=== PATIENT | female | born 1950 | race Caucasian/White ===

== ENCOUNTER 2017-03-27 12:51 | Inpatient (IN) ==
--- NOTE | 2017-03-26 21:15 | Discharge Summary ---
<Luna Jennings E - Last Filed: 03/26/17 21:13> Date of Encounter: 03/26/17 - Discharge Diagnosis (1) Fracture of surgical neck of right humerus Priority: Primary Status: Acute Qualifiers: Encounter type: initial encounter Fracture type: closed Fracture morphology: unspecified fracture morphology Fracture alignment: displaced Qualified Code(s): S42.211A - Unspecified displaced fracture of surgical neck of right humerus, initial encounter for closed fracture (2) Hypertension Priority: Secondary Status: Chronic Qualifiers: Hypertension type: unspecified Qualified Code(s): I10 - Essential (primary ) hypertension - Discharge Medications Home Medications: Amitriptyline [Elavil] 20 mg PO HS 03/11/17 [History] Aspirin [Lo-Dose Aspirin EC] 81 mg PO DAILY 03/11/17 [History] Ergocalciferol (VITAMIN D2) [Vitamin D2] 2,000 unit PO DAILY 03/11/17 [History] Furosemide [Lasix] 20 mg PO DAILY 03/11/17 [History] Lisinopril [Zestril] 40 mg PO DAILY 03/11/17 [History] Metformin HCl [Glucophage] 1,000 mg PO BID 03/11/17 [History] Ranitidine HCl [Zantac] 150 mg PO BID 03/11/17 [History] Sertraline [Zoloft] 100 mg PO DAILY 03/11/17 [History] Tizanidine HCl [Zanaflex] 2 mg PO TID PRN 03/11/17 [History] Tramadol HCl [Ultram] 50 mg PO Q8H 03/11/17 [History] Metoprolol Succinate 200 mg PO DAILY 30 Days tab.er.24h 03/21/17 [Rx] Amlodipine Besylate 10 mg PO DAILY 03/22/17 [History] Atorvastatin [Lipitor] 10 mg PO HS 03/22/17 [History] HYDROcodone/Acet 7.5/325 mg [[place] 7.5-325 mg] 1 tab PO Q4H PRN #42 tablet 03/22 [Rx] Pioglitazone HCl 30 mg PO DAILY 03/27/17 [History] hydrOXYzine HCl [Hydroxyzine HCl] 25 mg PO TID 03/27/17 [History] Allergies/Adverse Reactions: 3 Allergy/AdvReac Type Severity Reaction Status Date / Time duloxetine [From Cymbalta] Allergy Agitated Verified 03/27/17 13:37 Paroxetine [From Paxil] Allergy Agitated Verified 03/27/17 13:37 acetaminophen [From Percocet] AdvReac Shakiness Verified 03/27/17 13:37 Oxycodone [From Percocet] AdvReac Shakiness Verified 03/27/17 13:37 Primary care physician: Jamar Gibson DO - Patient Status Disposition: Transfer Inpatient Rehab Fac Condition: Good - Discharge Instructions Follow Up With: Jamar Gibson DO [Primary Care Provider] - - Hospital Course Hospital course: Ms. Morfin is a 66 year old female - Time Spent with Patient Total time spent providing and/or coordinating discharge services: <Slim Garcia - Last Filed: 03/28/17 09:19> Date of Encounter: 03/28/17 Time of Encounter: 09:18 - Discharge Diagnosis (1) Obesity (BMI 35.0-39.9 without comorbidity) Priority: Secondary Status: Chronic (2) Status post reverse total shoulder replacement Priority: Primary Status: Acute Qualifiers: Laterality: right Qualified Code(s): Z96.611 - Presence of right artificial shoulder joint (3) Fracture of surgical neck of right humerus Priority: Primary Status: Acute Qualifiers: Encounter type: initial encounter Fracture type: closed Fracture morphology: unspecified fracture morphology Fracture alignment: displaced Qualified Code(s): S42.211A - Unspecified displaced fracture of surgical neck of right humerus, initial encounter for closed fracture (4) Hypertension Priority: Secondary Status: Chronic Qualifiers: Hypertension type: essential hypertension Qualified Code(s): I10 - Essential (primary) hypertension (5) Hyperlipidemia Priority: Secondary Status: Chronic Qualifiers: Hyperlipidemia type: unspecified Qualified Code(s): E78.5 - Hyperlipidemia , unspecified Labs on day of discharge: Labs from last 24 hours 03/27/17 13:05 POC Glucose 136 H Primary care physician: Jamar Gibson DO - Patient Status Functional capacity at discharge: uses cane/walker Overall status at discharge: patient is progressing back to baseline - Hospital Course Hospital course: Ms. Morfin is a 66 year old female Status post right total shoulder The patient had an uneventful postoperative course. They received antibiotics and physical therapy and were discharged in stable condition. There will follow -up in the office in 2 weeks. - Time Spent with Patient Total time spent providing and/or coordinating discharge services:
[2017-03-27] MEDS ORDERED: Ringers Solution, Lactated 1,000 ML IVC SCH ×2 (13:45→23:29)
--- NOTE | 2017-03-27 13:58 | History & Physical Report ---
Date of Encounter: 03/27/17 Time of Encounter: 13:58 24 Hour HP Update - Instructions Instructions: If the History and Physical is less than 30 days old and was completed prior to A.M. admission and or procedure and has NOT been updated on calendar day of procedure please complete this update prior to performing procedure. - Update Patient reports changes in Medical Condition: No Changes in examination, assessment, or condition: No Changes in Medication: No Preop tests/diagnostics Reviewed: Yes Surgery Remains Indicated: Yes Consent for Planned Operative Procedure(s) Verified: Yes - Pre-Operative Checklist Preoperative Checklist Indicated: No Prophylactic Antibiotic Ordered: Yes Is VTE Prophylaxis Indicated?: Yes
[2017-03-27] MEDS ORDERED: CeFAZolin Syr 2,000MG/20 ML 2,000 MG/20 ML SYRINGE IVPB ONE (14:07)
[2017-03-27] MEDS ORDERED: *HR* HYDROcodone/Acet 5/325 mg TABLET PO ONE ×3 (15:02→19:40)
--- NOTE | 2017-03-27 16:30 | History & Physical Report ---
Date of Encounter: 03/27/17 Time of Encounter: 16:29 24 Hour HP Update - Instructions Instructions: If the History and Physical is less than 30 days old and was completed prior to A.M. admission and or procedure and has NOT been updated on calendar day of procedure please complete this update prior to performing procedure. - Update Patient reports changes in Medical Condition: No Changes in examination, assessment, or condition: No Changes in Medication: No Preop tests/diagnostics Reviewed: Yes Surgery Remains Indicated: Yes Consent for Planned Operative Procedure(s) Verified: Yes - Pre-Operative Checklist Preoperative Checklist Indicated: No Prophylactic Antibiotic Ordered: Yes Is VTE Prophylaxis Indicated?: Yes
[2017-03-27] MEDS ORDERED: Lidocaine -MPF 2% 2 ML VIAL ONE ×2 (16:42→20:36)
[2017-03-27] MEDS ORDERED: *HR* Propofol 200 MG/20 ML VIAL IVP ONE ×2 (16:42→20:37)
[2017-03-27] MEDS ORDERED: *HR* Midazolam HCl 2 MG/2 ML VIAL ONE ×2 (16:42→20:36)
[2017-03-27] MEDS ORDERED: Ondansetron 4 MG/2 ML VIAL ONE ×2 (16:42→20:36)
[2017-03-27] MEDS ORDERED: *HR* FentaNYL (PF) 100 MCG/2 ML VIAL ONE ×2 (16:42→20:36)
[2017-03-27] MEDS ORDERED: *HR* Enoxaparin 30 MG/0.3 ML SYRINGE SQ SCH (18:00)
[2017-03-27] MEDS ORDERED: ROPIVACAINE HCL/PF 0.5% 30 ML VIAL ONE (20:32)
[2017-03-27] MEDS ORDERED: Dexamethasone 4 MG/ML VIAL ONE ×2 (20:33→20:36)
[2017-03-27] MEDS ORDERED: *HR* Succinylcholine 200 MG/10 ML VIAL IVP ONE (20:36)
[2017-03-27] MEDS ORDERED: Lidocaine -MPF 4% 5 ML AMPUL ONE (20:41)
--- NOTE | 2017-03-27 21:14 | Anesthesia Procedures ---
Date of Encounter: 03/27/17 Time of Encounter: 21:12 Procedures: Anesthesia - Nerve Block Procedure Date: 03/27/17 Time: 21:00 Allergies/Adv Reactions: duloxetine, paroxetine, acetaminophen, oxycodone Pre-op Diagnosis: R proximal humerus fracture Surgical Procedure: R TSR Checklist: Correct Patient Identifier, Correct procedure, History checked Correct side: Right Blood Thinner: No Monitor Applied: EKG, BP, Pulse Oximetry Supplemental Oxygen via Nasal Cannula (L/min): 3 Sedation: Versed (mg): 2 Sedation: Fentanyl (mcg): 50 Indication: Post Op Analgesia (requested by Dr. Garcia) Pre-op Neuro Deficits: No Block Type: Supraclavicular Catheter placed: No Sterile Technique: Yes Ultrasound used: Yes Anatomy identified: Yes Visual spread of Local: Yes Neuro Stimulation: No Blood on Needle Aspiration: No Smooth Injection of Local: Yes Pain with Injection of Local: No Prep: Chlorhexadine Needle: 22 x 50 mm Stimuplex Local: Ropivacaine (0.5% 30mL + 4mg dexamethasone) Number of Attempts: 1 Complications: None/effective block Vitals: please see Jamar MARTINEZ's electronic charting for VS entry
[2017-03-27] MEDS ORDERED: *HR* HYDROmorphone (PF) 1 MG/ML SYRINGE IVP PRN ×2 (21:16→23:29)
[2017-03-27] MEDS ORDERED: *HR* Labetalol 20 MG/4 ML SYRINGE IVP PRN (21:16)
[2017-03-27] MEDS ORDERED: Ipratropium Neb 0.5 MG NEBULIZER IH PRN (21:16)
[2017-03-27] MEDS ORDERED: Ondansetron 4 MG/2 ML VIAL IVP PRN ×2 (21:16→23:29)
[2017-03-27] MEDS ORDERED: Albuterol 2.5 MG/3 ML NEBULIZER IH PRN (21:16)
--- NOTE | 2017-03-27 21:42 | Orthopedic Operative Note ---
Date of procedure: 03/27/17 Pre-op diagnosis: Displaced comminuted right proximal humerus fracture Post-op diagnosis: same Procedure: Procedure: Reverse total shoulder replacment, right Estimated blood loss: 100 cc Hardware: Metal and polyethylene replacement Arthrex glenoid baseplate: Medium , 2 4.5 screws. 1 6.5 screw, glenosphere: 42+4 , humeral stem: 9 , poly insert: 6 constrained Procedural Notes: Comminuted displaced proximal humerus fracture. Operative procedure: The patient was brought to the operating room and placed on the operating room table. After general anesthesia was administered the operative shoulder was examined. Findings were noted. The patient was placed in the modified beachchair position. All pressure points were padded appropriately. And the head was stabilized in the neutral position. The operative extremity was prepped and draped in the sterile surgical fashion. The patient received IV antibiotics prior to skin incision. A standard deltopectoral approach was made to the operative shoulder. Incision was made to the skin and subcutaneous tissue,hemo stasis was obtained with Bovie cautery. Using careful blunt dissection the cephalic vein was identified and mobilized medially. The deltopectoral interval was developed and the clavipectoral fascia was incised. The lesser tuberosity was identified and tagged with 2 #2 fiber loops and 2 #2 FiberWire suture. The greater tuberosity was identified and tagged with 6 #5 FiberWire suture. The humeral head was removed. Anterior and posterior Bankart retractors were placed to expose the glenoid. The glenoid guide was seated and the centering hole was made. It was reamed with the appropriate reamer. The medium baseplate was seated and secured with ( 2) 4.5 screws and one 6.5 screw. The baseplate was irrigated and dried and the 42+4 was seated and secured with the Au taper. The Au taper was tested and found to be secure the humerus was redislocated and prepared with the diaphyseal reamers, followed by a broaching process up to the appropriate size 9 in 20 degrees of retro-version. Trial reduction found the shoulder to be relocatable. The 9 humeral component was impaced in place in 20 degrees of retroversion. Trial reduction found the shoulder to be relocatable and stable with the appropriate 6 constrained Judy. Trial component was removed and the real implant was seated and secured the shoulder was reduced. The shoulder had excellent motion and excellent stability and no evidence of dislocation. The greater tuberosity was reduced and repaired to the implant with 2 # 5 fiberwire sutures. the lesser tuberosity was reduced and repaired to this construct with 2 #5 fiberwire sutures. The PA closed the shoulder. The deep tissue was irrigated with pulse irrigation. The deltopectoral interval was closed with a running #1 PDS suture , subcutaneous tissue was irrigated and closed with 0 PDS suture, the skin was closed with Dermabond. The patient was placed in a sterile dressing, abduction brace and extubated. The patient was then transferred to the recovery room in stable condition. Anesthesia: GETA Surgeon: Slim Garcia Was there an shampoo assistant present: No Estimated blood loss (cc): 100 Condition: stable Disposition: PACU
[2017-03-27 22:34] LABS: Hemoglobin 11.7 g/dL (11.5-15.4)
[2017-03-27] MEDS ORDERED: Dextrose Gel 15 GM PO PRN ×2 (23:29)
[2017-03-27] MEDS ORDERED: Sennosides 8.6 MG TABLET PO PRN (23:29)
[2017-03-27] MEDS ORDERED: MOM Conc 10 ML UD.LIQ PO PRN (23:29)
[2017-03-27] MEDS ORDERED: Insulin LISPRO 300 UNITS/3 ML VIAL SQ SCH (23:29)
[2017-03-27] MEDS ORDERED: *HR* Dextrose 50 % in Water (Syg) 50 ML SYRINGE IVP PRN (23:29)
[2017-03-27] MEDS ORDERED: tiZANidine 4 MG TABLET PO PRN (23:29)
[2017-03-27] MEDS ORDERED: Temazepam 15 MG CAPSULE PO PRN (23:29)
[2017-03-27] MEDS ORDERED: D5% in Water 1,000 ML IVC PRN (23:29)
[2017-03-27] MEDS ORDERED: traMADol 50 MG TABLET PO PRN (23:29)
[2017-03-27] MEDS ORDERED: Naloxone 0.4 MG/ML INJ IVP PRN (23:29)
[2017-03-27] MEDS ORDERED: *HR* HYDROcodone/Acet 7.5/325 mg TABLET PO PRN (23:29)
[2017-03-28] MEDS: *HR* Metformin 500 MG TABLET PO SCH ×2 (00:34→08:35)
[2017-03-28] MEDS: CeFAZolin Premix DUPLEX 2,000 MG/50 ML BAG IVPB SCH ×2 (00:35→08:34)
[2017-03-28] MEDS: hydrOXYzine pamoate 25 MG CAPSULE PO SCH ×3 (00:35→14:38)
[2017-03-28] MEDS: Famotidine 20 MG TABLET PO SCH ×2 (00:35→08:36)
[2017-03-28 05:20] LABS: Hemoglobin 11.6 g/dL (11.5-15.4)
[2017-03-28] MEDS ORDERED: *HR* Enoxaparin 30 MG/0.3 ML SYRINGE SQ SCH (06:00)
--- NOTE | 2017-03-28 06:57 | Anesthesia Evaluation Post Op ---
Date of Encounter: 03/28/17 Time of Encounter: 06:56 - Vital Signs Vital Signs: Vital Signs/O2 Sat, Most Current Temp Pulse Resp BP Pulse Ox 98.5 F 77 18 157/76 94 03/28/17 06:29 03/28/17 06:29 03/28/17 06:29 03/28/17 06:29 03/28/17 06:29 - Lungs Lungs: Clear Ascult./Percussion - Airway Airway: Non-obstructed - Cardiovascular Regular Rate - Mental Status Mental Status: Asleep with brisk response to light stimulation - Pain Pain Scale: 0 Pain Scale used: Numeric (1 - 10) - Nausea Vomiting Nausea Vomiting: Not Present - Hydration Hydration: Tolerates oral liquids
[2017-03-28] MEDS: Insulin LISPRO 300 UNITS/3 ML VIAL SQ SCH ×2 (08:33→12:30)
[2017-03-28] MEDS ORDERED: Cholecalciferol (D-3) 1,000 UNIT TABLET PO SCH (09:00)
[2017-03-28] MEDS ORDERED: *HR* Pioglitazone 30 MG TABLET PO SCH (09:00)
[2017-03-28] MEDS ORDERED: Furosemide 20 MG TABLET PO SCH (09:00)
[2017-03-28] MEDS ORDERED: Lisinopril 20 MG TABLET PO SCH (09:00)
[2017-03-28] MEDS ORDERED: amLODIPine 5 MG TABLET PO SCH (09:00)
[2017-03-28] MEDS ORDERED: Aspirin Enteric Coated 81 MG Tablet PO SCH (09:00)
[2017-03-28] MEDS ORDERED: Metoprolol XL (24 HR) Succ 50 MG TAB.ER.24H PO SCH (09:00)
--- NOTE | 2017-03-28 09:19 | Orthopedics Progress Note ---
Date of Encounter: 03/28/17 Time of Encounter: 09:19 - Assessment and Plan (1) Obesity (BMI 35.0-39.9 without comorbidity) Current Visit: Yes Status: Chronic (2) Status post reverse total shoulder replacement Current Visit: Yes Status: Acute Qualifiers: Laterality: right Qualified Code(s): Z96.611 - Presence of right artificial shoulder joint (3) Fracture of surgical neck of right humerus Current Visit: No Status: Acute Qualifiers: Encounter type: initial encounter Fracture type: closed Fracture morphology: unspecified fracture morphology Fracture alignment: displaced Qualified Code(s): S42.211A - Unspecified displaced fracture of surgical neck of right humerus, initial encounter for closed fracture (4) Hypertension Current Visit: No Status: Chronic Qualifiers: Hypertension type: essential hypertension Qualified Code(s): I10 - Essential (primary) hypertension (5) Hyperlipidemia Current Visit: Yes Status: Chronic Qualifiers: Hyperlipidemia type: unspecified Qualified Code(s): E78.5 - Hyperlipidemia , unspecified Subjective Interval history: Patient was seen this morning doing well without complaints. Afebrile vital signs stable. Operative extremity: Neurovascularly intact Dressing clean dry and intact Calves nontender Assessment and plan: Continue with postoperative care Discharge today Objective Vital signs: Vital Signs Temp Pulse Resp BP Pulse Ox 03/28/17 06:29 98.5 F 77 18 157/76 94 03/28/17 04:24 97.9 F 80 17 112/63 95 03/27/17 23:58 98.6 F 79 16 161/80 96 03/27/17 23:40 96 03/27/17 23:30 98.3 F 80 16 152/78 96 03/27/17 23:00 98.7 F 82 16 159/84 98 03/27/17 22:26 97.0 F L 89 20 185/90 98 03/27/17 22:16 90 20 194/94 99 03/27/17 22:06 85 12 185/70 100 03/27/17 21:56 97.2 F L 83 16 188/73 100 03/27/17 20:46 88 225/94 98 03/27/17 13:52 82 03/27/17 13:10 97.9 F 18 18 189/79 97 Intake and Output 03/27/17 03/28/17 03/28/17 23:59 07:59 15:59 Intake Total 50 / 50 Output Total 100 / 100 Balance -100 / -100 50 / 50 Intake: IV Fluids 50 / 50 Ancef Premix DUPLEX 2,000 mg In 50 / 50 50 ml @ 100 mls/hr IVPB Q8HR [facility] Rx#:[id number] Output: Estimated Blood Loss 100 / 100 Other: Blood Glucose* 119 167 244 - Labs CBC & BMP: 03/28/17 04:50 Labs: Abnormal lab results Hct 34.0 % (35.3-44.9) L 03/28/17 04:50 POC Glucose 244 (58-89) H 03/28/17 08:05 - VTE Documentation of Mechanical Device: Venous foot pump, device Consult Discharge Plan - Plan Referrals: Jamar Gibson DO [Primary Care Provider] -
--- NOTE | 2017-03-28 10:59 | Orthopedics Progress Note ---
Date of Encounter: 03/28/17 Time of Encounter: 08:50 - Assessment and Plan (1) Left wrist fracture Current Visit: No Status: Acute POD#6 - Left DR ORIF 03/22/17 Dr. Severino Patient was to see me in the office tomorrow but is currently admitted after right TSR reverse yesterday. Left arm is doing well, pain well controlled. Per nurse, incision was c/d/i with no s/s infection once postop splint was removed for application of cast. MA from office to apply SAC. Patient instructed to continue ROM of fingers as cast allows. Continue NWB. Continue to elevate and ice as needed for swelling. Will follow up in 1 week in [facility] office for suture removal and xrays. Qualifiers: Encounter type: initial encounter Fracture type: closed Qualified Code(s) : S62.102A - Fracture of unspecified carpal bone, left wrist, initial encounter for closed fracture Subjective Principal diagnosis: POD#[address] ORIF 03/22/17 Interval history: Patient doing well this morning. Had surgery yesterday right TSR reverse (Dr. Garcia). Left wrist doing well, pain well controlled. No concerns overnight. Objective Vital signs: Vital Signs Temp Pulse Resp BP Pulse Ox 03/28/17 06:29 98.5 F 77 18 157/76 94 03/28/17 04:24 97.9 F 80 17 112/63 95 03/27/17 23:58 98.6 F 79 16 161/80 96 03/27/17 23:40 96 03/27/17 23:30 98.3 F 80 16 152/78 96 03/27/17 23:00 98.7 F 82 16 159/84 98 03/27/17 22:26 97.0 F L 89 20 185/90 98 03/27/17 22:16 90 20 194/94 99 03/27/17 22:06 85 12 185/70 100 03/27/17 21:56 97.2 F L 83 16 188/73 100 03/27/17 20:46 88 225/94 98 03/27/17 13:52 82 03/27/17 13:10 97.9 F 18 18 189/79 97 Intake and Output 03/27/17 03/28/17 03/28/17 23:59 07:59 15:59 Intake Total 290 / 290 Output Total 100 / 100 Balance -100 / -100 290 / 290 Intake: IV Fluids 50 / 50 Ancef Premix DUPLEX 2,000 mg In 50 / 50 50 ml @ 100 mls/hr IVPB Q8HR [facility] Rx#:[id number] Oral 240 / 240 Output: Estimated Blood Loss 100 / 100 Other: Meal Breakfast Percent of Meal Consumed 60% Blood Glucose* 119 167 244 Incision: clean and dry (sugar tong splint in place to LUE, good motion of fingers, brisk cap refill, NV intact) - Labs CBC & BMP: 03/28/17 04:50 Labs: Abnormal lab results Hct 34.0 % (35.3-44.9) L 03/28/17 04:50 POC Glucose 244 (58-89) H 03/28/17 08:05 - VTE Documentation of Mechanical Device: Venous foot pump, device Consult Discharge Plan - Plan Referrals: Luna Vega, PAC [Physician Cattle Shipper] - 03/29/17 8:30 am (& also, April 08, 2017 at 09:00 AM) Luna Jennings, PAC [Physician Cattle Shipper] - 04/04/17 9:30 am (& also, April at 2:30 PM) Peg Olson CNP [Partnered Physician] - 04/24/17 3:30 pm Jamar Gibson DO [Primary Care Provider] - 06/24/17 1:00 pm
[2017-03-28] MEDS ORDERED: Mag Hydrox/Al Hydrox/Simeth 30 ML UDC PO PRN (11:10)
[2017-03-28 14:25] VITALS: BP 126/57
--- NOTE | 2017-03-28 17:01 | Physician Discharge Referral ---
[facility] Referral Info [facility] Provider in Charge: Dr. Slim Garcia - Diagnosis (1) Fracture of surgical neck of right humerus Priority: Primary Status: Acute (2) Hypertension Priority: Secondary Status: Chronic (3) Status post reverse total shoulder replacement Priority: Primary Status: Acute Expected Duration of Placement: less than 30 days Prognosis: Good Aware of Diagnosis: Patient Aware of Prognosis: Patient - Transfer Medications Home Medications: Amitriptyline [Elavil] 20 mg PO HS 03/11/17 [History] Aspirin [Lo-Dose Aspirin EC] 81 mg PO DAILY 03/11/17 [History] Ergocalciferol (VITAMIN D2) [Vitamin D2] 2,000 unit PO DAILY 03/11/17 [History] Furosemide [Lasix] 20 mg PO DAILY 03/11/17 [History] Lisinopril [Zestril] 40 mg PO DAILY 03/11/17 [History] Metformin HCl [Glucophage] 1,000 mg PO BID 03/11/17 [History] Ranitidine HCl [Zantac] 150 mg PO BID 03/11/17 [History] Sertraline [Zoloft] 100 mg PO DAILY 03/11/17 [History] Tizanidine HCl [Zanaflex] 2 mg PO TID PRN 03/11/17 [History] Tramadol HCl [Ultram] 50 mg PO Q8H 03/11/17 [History] Metoprolol Succinate 200 mg PO DAILY 30 Days tab.er.24h 03/21/17 [Rx] Amlodipine Besylate 10 mg PO DAILY 03/22/17 [History] Atorvastatin [Lipitor] 10 mg PO HS 03/22/17 [History] HYDROcodone/Acet 7.5/325 mg [[place] 7.5-325 mg] 1 tab PO Q4H PRN #42 tablet 03/22 [Rx] Pioglitazone HCl 30 mg PO DAILY 03/27/17 [History] hydrOXYzine HCl [Hydroxyzine HCl] 25 mg PO TID 03/27/17 [History] Allergies/Adverse Reactions: 3 Allergy/AdvReac Type Severity Reaction Status Date / Time duloxetine [From Cymbalta] Allergy Agitated Verified 03/27/17 13:37 Paroxetine [From Paxil] Allergy Agitated Verified 03/27/17 13:37 acetaminophen [From Percocet] AdvReac Shakiness Verified 03/27/17 13:37 Oxycodone [From Percocet] AdvReac Shakiness Verified 03/27/17 13:37 - Respiratory Orders Smoking Cessation: Smoking cessation has been advised. For more information, call the [place] Tobacco Quit Line at 7-809-KRCU-NOW. - Ancillary Orders May use pressure relief devices daily prn, May go on [place] w/family/respon democrat w /meds at nurse discretion PRN, May consult with Dentist, Health Program Manager, Senior Account Director PRN - Mobility Orders Chair, Ambulate - Rehabiliation Orders Rehab Orders: Evaluation for Physical Therapy Other: NO SHOULDER MOTION PT/OT. NWB to affected upper extremity. Follow Shoulder Precautions x 6 weeks. Stay in brace during activity and at night. ICE and elevate extremity frequently throughout the day. - Treatments Skin tear care topically daily PRN per policy List/Other: Opsite placed. Keep dressing intact until first follow up appointment. If > 50% saturated, notify office, remove dressing and place appropriate dressing back in place. Leave Zipline and [place] intact. Opsite dressing is water resistant, not water-proof. OK to shower, but do not get dressing wet. - Diet Orders Regular CERTIFICATION: I certify that the transfer of the above named patient to an Extended Care Facility is necessary for the continuing treatment of the diagnosis listed. The above information is true and accurate reflection of patient's current condition. Confidential - Redisclosure prohibited without a patient's written consent.
== END 2017-03-28 15:16 | DRG 483 ==
LOC: SAMDAY 12:51 → 3NENU 22:47
PROVIDERS: ADMIT Orthopaedic Surgery; ATTEND Orthopaedic Surgery